=== PATIENT | male | born 1950 | race Caucasian/White ===

== ENCOUNTER 2018-11-24 13:51 | Day surgery (SDC) | payer MEDICARE, OTHER, SELFPAY ==
[2018-09-29 14:39] VITALS: BMI 23.0
[2018-11-24 10:11] LABS: Hematocrit 30.2 % (40-54); Hemoglobin 8.8 g/dl (13.0-16.5); Mean Corp Hgb Conc 29.1 g/gl (32-36); Mean Corpuscular Hgb 27.6 pg (27.0-32.0); Mean Corpuscular Volume 94.7 fL (80-94); Mean Platelet Vol. 9.6 fl (6.2-12.0); Platelet Count 259 K/mm3 (150-450); RBC Distribution Width CV 17.5 % (11.6-14.6); RBC Distribution Width SD 61.4 fl (35.1-43.9); Red Blood Count 3.19 M/mm3 (4.6-6.2); White Blood Count 5.9 K/mm3 (4.4-11.0)
[2018-11-24 10:14] LABS: Scan Indicated on CBC? Y/N NO
[2018-11-24 10:26] LABS: Anion Gap 6 (5-15); BUN 55 mg/dL (7-18); BUN/Creat Ratio 14.4 RATIO (10-20); Calcium,Total 7.7 mg/dL (8.5-10.1); Chloride 108 mmol/L (98-107); Creatinine, Serum 3.81 mg/dL (0.70-1.30); EST Glomerular Filtration Rate 17 mL/min (>60); Est Glom Filt Rate - Afr Amer 20 mL/min (>60); Glucose 133 mg/dL (74-106); Potassium 4.6 mmol/L (3.5-5.1); Sodium Level 142 mmol/L (136-145)
[2018-11-24 12:25] VITALS: BMI 26.2
--- NOTE | 2018-11-24 16:25 | PCM.OPRPT ---
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 67-year-old gentleman was taken to the special procedure lab. The patient has had a previous known history of right upper extremity swelling. Within the past week it has become very severe to the point where he has missed 2 dialysis sessions. He was referred to the office today for emergency intervention. He had already taken his Plavix. He was taken to the procedure room. Placed on the table. The right extremity sterilely prepped and draped. There is evidence of 2 sites of obvious access needle puncture sites with eschars. Skin appears to be intact. There is superficial wound ulceration of the skin. I utilized ultrasound to avoid these 2 areas. I injected 2% lidocaine. Micropuncture needle was inserted antegrade with flow. Micropuncture wire inserted. 6 [place] short sheath was inserted. Using ice contrast fistulogram was taken of the right upper arm. This demonstrated that the transposed right upper extremity basilic vein to brachial artery was patent except at the basilic to axillary vein junction there appeared to be valvular stenosis. There was evidence of a previous large covered stent within the superior vena cava and innominate. There is high-grade stenosis at that basilic axillary junction and there was high-grade stenosis within the innominate vein just prior to the stent. No 3 5 angled Glidewire was advanced. I used a 8 x 4 conquest balloon to balloon both the basilic axillary junction and the more central stenosis of the innominate. The basilic axillary junction responded well. This was up to 30 luis of pressure. The more central stenosis demonstrated improvement but incomplete resolution. By visual estimate it is felt likely that the stent graft in position is likely 13 mm in diameter. I then up sheath to a 7 [place] sheath. I used a 12 x 4 [place] balloon and performed balloon angioplasty of the very proximal stenosis of the innominate vein just prior to the superior vena cava stent. I had to have the balloon in the stent to hold it in position. The patient tolerated this fairly well. No sedative was given so that the patient could provide clear distinct feedback. That balloon was inflated to 14 luis of pressure. Subsequently a second insufflation was performed and he tolerated that well. Final fistulogram now demonstrated resolution of the stenosis at the basilic/axillary vein junction and improvement in the more central stenosis though with approximately a 25-30% recoil. The sheath was removed and a U suture of 4-0 nylon placed. There was now resumption of a thrill and audible bruit. Blood loss had been minimal. He tolerated the procedure well there was no apparent complication vital signs remained stable and he was taken back to the recovery area in satisfactory condition. Images demonstrated the above. Tolerated well. I did not attempt to obtain retrograde images as the antegrade flow was extraordinarily strong. Ibrahima Perez M.D., F.A.C.S. Type of Anesthesia:: Local
[2018-11-24 16:40] VITALS: BP 151/51; PULSE 88; RESP 18; TEMP 37.1; O2SAT 91
[2018-11-24 16:55] VITALS: BP 138/34; PULSE 80; RESP 18; O2SAT 93
[2018-11-24 17:10] VITALS: BP 135/42; PULSE 80; RESP 18; O2SAT 93
[2018-11-24 17:25] VITALS: BP 131/45; PULSE 78
[2018-11-24 17:40] VITALS: BP 130/40; PULSE 87; RESP 18; O2SAT 93
== END 2018-11-24 17:55 | disposition skilled nursing facility (03) ==
LOC: CLSP 13:56 → PCU 17:28
PROVIDERS: Physician Assistant; Referring Provider Surgery; Visit Provider Surgery
DX: I87.1 Compression of vein (principal); T82.898A Other specified complication of vascular prosthetic devices, implants and grafts, initial encounter; N18.9 Chronic kidney disease, unspecified; I73.9 Peripheral vascular disease, unspecified; I25.10 Atherosclerotic heart disease of native coronary artery without angina pectoris; E78.5 Hyperlipidemia, unspecified; Z87.891 Personal history of nicotine dependence; Z93.1 Gastrostomy status
CPT/HCPCS: 36415; 36902; 36907; 76937; 80048; 85027; Q9967; C1725; C1769; C1894